=== PATIENT | female | born 1950 | race Caucasian/White ===

== ENCOUNTER 2018-01-16 12:10 | Day surgery (SDC) | payer OTHER ==
[~2018-01-16] VITALS: Ht 162.6 cm; Wt 91.6 kg
[~2018-01-16 12:10] MED LIST: FISH OIL CONCE1 EAC1 PO; FLONASE16 G1 BOTH NARES; HYTRIN5 MG PO; LASIX40 MG PO; LEVEMIR FL100 UNIT/1 SC; NORVASC5 MG PO; OCUVITE TABLET1 EACH PO; RANITIDINE HCL150 MG PO; ROCALTROL0.25 MCG PO; TENORMIN100 MG PO; TIMOPTIC-XE GEL5 ML RIGHT EYE; ZOCOR20 MG PO; ZYRTEC10 M2 PO
[2018-01-16 12:48] LABS: HEMATOCRIT 32.9 % (36.0-46.0); HEMOGLOBIN 10.5 G/DL (11.9-15.5); MCH 31.5 PG (29.0-34.0); MCHC 31.9 G/DL (30.0-36.0); MCV 98.8 FL (83-99); PLATELET COUNT 192 K/uL (156-360); RBC DIS.WIDTH-CV 13.5 % (11.8-14.6); RBC DIS.WIDTH-SD 49.1 % (39-53); RED BLOOD COUNT 3.33 M/uL (3.80-5.20); WHITE BLOOD COUNT 7.6 K/uL (4.1-10.2)
[2018-01-16 12:57] VITALS: BP 202/86
[2018-01-16 13:14] LABS: CHLORIDE 114 MEQ/L (99-109); GFR ESTIMATE (CALCULATED) 12 mL/min/; GLUCOSE 132 mg/dL (70-99); SODIUM 140 MEQ/L (136-147); UREA NITROGEN (BUN) 69 mg/dL (9-23)
[2018-01-16 19:00] VITALS: BP 170/66
[2018-01-16 20:05] VITALS: BP 150/64
== END 2018-01-16 20:30 | disposition home or self-care (01) ==
LOC: SDC 12:10
PROVIDERS: Surgery
DX: I12.0 Hypertensive chronic kidney disease with stage 5 chronic kidney disease or end stage renal disease (principal); E11.22 Type 2 diabetes mellitus with diabetic chronic kidney disease; N18.6 End stage renal disease; Z79.4 Long term (current) use of insulin; E78.00 Pure hypercholesterolemia, unspecified
CPT/HCPCS: 80048; 82948; 85027; 93005; C1768; J0360; J0690; J1644; J2250; J2405; J2720; J3010; S0020